=== PATIENT | female | born 1960 | race African-American/Black ===

== ENCOUNTER 2022-08-04 17:29 | Emergency (ER) | payer OTHER, MEDICAID ==
[~2022-08-04] VITALS: Ht 167.6 cm; Wt 105.0 kg
[2022-08-04 18:00] VITALS: BP 170/90
[2022-08-04 21:28] LABS: BASOPHILS % 0.7 % (0.0-2.0); EOSINOPHILS % 0.6 % (0.0-5.0); HEMATOCRIT. 44.6 % (36.0-48.0); LYMPHOCYTES % 25.5 % (20.0-50.0); MEAN CORPUSCULAR HEMOGLOBIN 32.6 pg (28.0-32.0); MEAN CORPUSCULAR VOLUME 96.8 fL (81.0-99.0); MEAN PLATELET VOLUME 9.6 fl (7.4-10.4); NEUTROPHILS % 65.2 % (40.0-76.0); PLATELET 236 x1000/uL (130-400); RED BLOOD CELL COUNT 4.61 mill/uL (4.2-5.4); RED CELL DISTRIBUTION WIDTH 14.1 % (11.6-14.6)
[2022-08-04 21:37] LABS: CHLORIDE 101 mEq/L (98-107)
[2022-08-04 22:21] LABS: CLARITY URINE CLEAR (CLEAR); COLOR URINE YELLOW (YELLOW); KETONES URINE 2+ (NEGATIVE); LEUKOCYTE ESTERASE URINE NEGATIVE (NEGATIVE); NITRITE URINE NEGATIVE (NEGATIVE); OCCULT BLOOD URINE TRACE (NEGATIVE); PH URINE 6.5 (4.5-8.0); PROTEIN URINE NEGATIVE (NEGATIVE); SPECIFIC GRAVITY URINE 1.015 (1.005-1.030); UROBILINOGEN URINE 0.2 E.U./dL (0.2-1.0)
[2022-08-04] MEDS ORDERED: MORPHINE SULFATE 10 MG/ML CPJ IM ONE (23:00)
[2022-08-05] MEDS ORDERED: CEFTRIAXONE SODIUM 500 MG/VIAL IM ONE (00:15)
[2022-08-05] MEDS ORDERED: AZITHROMYCIN 500 MG TABLET PO ONE (00:15)
[2022-08-05] MEDS ORDERED: CEPH500T MT (00:15)
[2022-08-07 05:11] LABS: NEISSERIA GONORRHOEAE NAA Negative (Negative)
== END 2022-08-05 00:45 | disposition home or self-care (01) ==
LOC: ER 17:29
DX: N30.90 Cystitis, unspecified without hematuria (principal); I10 Essential (primary) hypertension; E11.9 Type 2 diabetes mellitus without complications; Z86.39 Personal history of other endocrine, nutritional and metabolic disease
CPT/HCPCS: 36415; 74176; 80053; 81003; 83690; 85025; 85610; 87491; 87591; 96372; 99285; J0696; J2270

== ENCOUNTER 2024-01-23 17:45 | Emergency (ER) | payer OTHER ==
[~2024-01-23] VITALS: Ht 177.8 cm; Wt 121.0 kg
[~2024-01-23 17:45] MED LIST: CEPH500T MT
[2024-01-23 18:07] VITALS: O2SAT 97
[2024-01-23] MEDS: TETRACAINE 0.5% OPHTH DROPS 4ML RIGHTEYE ONE (20:39)
[2024-01-23] MEDS: FLUORESCEIN SODIUM 1MG/STRIP RIGHTEYE ONE (20:39)
[2024-01-23] MEDS ORDERED: MOXI3DRO12 RIGHTEYE (21:37)
[2024-01-23 21:45] VITALS: BP 111/66; PULSE 88; RESP 20; TEMP 98.2
== END 2024-01-23 21:45 | disposition home or self-care (01) ==
LOC: ER 17:47
DX: H10.9 Unspecified conjunctivitis (principal); E11.9 Type 2 diabetes mellitus without complications; I10 Essential (primary) hypertension; E03.9 Hypothyroidism, unspecified
CPT/HCPCS: 99283